=== PATIENT | female | born 2000 | race Caucasian/White ===

== ENCOUNTER 2021-05-29 16:36 | Emergency (ER) | payer OTHER ==
[~2021-05-29] VITALS: Ht 182.9 cm; Wt 74.0 kg
[2021-05-29] MEDS ORDERED: [UNRECOGNIZED DRUG - OTHER] (18:22)
[2021-05-29 19:02] LABS: URINE BILIRUBIN - DIPSTICK NEGATIVE (NEGATIVE); URINE BLOOD DIPSTICK NEGATIVE (NEGATIVE); URINE COLOR YELLOW; URINE GLUCOSE - DIPSTICK NEGATIVE (NEGATIVE); URINE KETONE NEGATIVE (NEGATIVE); URINE LEUK ESTERASE NEGATIVE (NEGATIVE); URINE PROTEIN - DIPSTICK NEGATIVE (NEG-TRACE); URINE UROBILINOGEN - DIPSTICK 0.2 E.U./dL (0.2)
[2021-05-29 19:11] LABS: URINE NITRITE - DIPSTICK NEGATIVE (Negative)
[2021-05-29 20:55] LABS: HEMATOCRIT 42.8 % (37.0-47.0); HEMOGLOBIN 14.1 g/dl (12.0-16.0); IMMATURE GRANULOCYTES 0.1 % (0.0-5.0); MEAN CELL VOLUME 85.1 fL CALC (80.0-100.0); MEAN CORPUSCULAR HGB CONC 32.9 g/dL CAL (32.0-36.0); NEUT# 6.17 thou/uL (2.00-7.15); RED BLOOD COUNT 5.03 mill/uL (4.20-5.60); RED CELL DISTRI WIDTH 12.5 % (11.5-15.5)
[2021-05-29 21:06] LABS: ALBUMIN 4.8 g/dL (3.2-5.0); ALKALINE PHOSPHATASE 108 u/l (38-126); AMYLASE 96 u/l (30-110); ANION GAP 13 (6-22 (CALC)); BUN 15 mg/dL (7-17); BUN/CREATININE RATIO 18 (12-20 (CALC)); CARBON DIOXIDE 26 mmol/l (22-30); CHLORIDE 103 mmol/l (95-108); CREATININE 0.8 mg/dL (0.5-1.0); GFR > 60 ML/MIN (>=60 (CALC)); GFR FOR AFR.AMER. > 60 ML/MIN (>=60 (CALC)); LIPASE 45 u/l (23-300); POTASSIUM 3.9 mmol/l (3.5-5.1); SGOT/AST 23 u/l (14-36); SODIUM 138 mmol/l (137-146); TOTAL PROTEIN 8.4 g/dL (6.3-8.2)
[2021-05-29 23:00] VITALS: BP 124/72
== END 2021-05-29 23:05 | disposition home or self-care (01) | DRG 392 ==
LOC: ED 16:36
PROVIDERS: Emergency Medicine; Family Medicine
DX: R10.11 Right upper quadrant pain (principal); R10.31 Right lower quadrant pain; E05.90 Thyrotoxicosis, unspecified without thyrotoxic crisis or storm
CPT/HCPCS: Q9967; S0164

== ENCOUNTER 2023-12-02 09:28 | Observation (INO) | payer OTHER ==
[~2023-12-02] VITALS: Ht 180.3 cm; Wt 83.0 kg
[~2023-12-02 09:28] MED LIST: [UNRECOGNIZED DRUG - OTHER]
[2023-12-02] MEDS ORDERED: SODIUM CHLORIDE 0.9% 1,000 ML IV ONE (09:40)
[2023-12-02] MEDS ORDERED: ONDANSETRON HCl 4 MG/2 ML SDV IV ONE (09:40)
[2023-12-02 10:13] LABS: BASO% 0.5 % (0-3); EOS% 2.1 % (0-8); HEMATOCRIT 41.5 % (37.0-47.0); HEMOGLOBIN 13.7 g/dl (12.0-16.0); IMMATURE GRANULOCYTES 0.1 % (0.0-5.0); MEAN CELL VOLUME 84.2 fL CALC (80.0-100.0); MEAN CORPUSCULAR HGB 27.8 pG CALC (26.0-32.0); MONO% 8.5 % (2-13); NEUT# 5.4 thou/uL (2.00-7.15); NEUT% 62.8 % (42-76); RED BLOOD COUNT 4.93 mill/uL (4.20-5.60); RED CELL DISTRI WIDTH 12.5 % (11.5-15.5)
[2023-12-02 10:23] LABS: ALBUMIN 4.8 g/dL (3.2-5.0); ALKALINE PHOSPHATASE 72 u/l (38-126); ANION GAP 13 (6-22 (CALC)); BUN 13 mg/dL (7-17); BUN/CREATININE RATIO 17 (12-20 (CALC)); CARBON DIOXIDE 21 mmol/l (22-30); CHLORIDE 111 mmol/l (95-108); CREATININE 0.8 mg/dL (0.5-1.0); ESTIMATED GFR 105 ML/MIN (>=90 (CALC)); POTASSIUM 3.6 mmol/l (3.5-5.1); SODIUM 141 mmol/l (137-146); TOTAL PROTEIN 8.3 g/dL (6.3-8.2)
[2023-12-02 10:53] LABS: SGOT/AST 55 u/l (14-36)
[2023-12-02 10:54] LABS: TSH, 3RD GENERATION < 0.02 uIU/mL (0.47 - 4.68)
[2023-12-02] MEDS ORDERED: LABETALOL HCL 100 MG/20 ML VIAL IV ONE (11:15)
[2023-12-02] MEDS ORDERED: PROPRANOLOL IV ONE (11:20)
[2023-12-02] MEDS ORDERED: HYDROCORTISONE IV ONE (12:05)
[2023-12-02] MEDS ORDERED: [UNRECOGNIZED DRUG - OTHER] IV ONE (12:05)
[2023-12-02] MEDS ORDERED: SODIUM CHLORIDE 0.9% 1,000 ML IV PRN (12:40)
[2023-12-02] MEDS ORDERED: ACETAMINOPHEN 325 MG/TAB PO PRN (12:40)
[2023-12-02] MEDS ORDERED: MAGNESIUM HYDROXIDE 30 ML UDC PO PRN (12:40)
[2023-12-02 18:32] VITALS: BP 138/86
[2023-12-02] MEDS ORDERED: ENOXAPARIN SODIUM 40 MG/0.4 ML SYR SC SCH (21:00)
[2023-12-03 04:35] VITALS: BP 106/54
[2023-12-03 05:11] VITALS: BP 106/54
[2023-12-03 07:20] VITALS: BP 133/74
[2023-12-03] MEDS ORDERED: METHIMAZOLE5 MG PO (10:23)
[2023-12-03] MEDS ORDERED: METHIMAZOLE10 MG PO (10:29)
[2023-12-03 11:52] VITALS: BP 128/77
== END 2023-12-03 12:05 | disposition home or self-care (01) | DRG 645 ==
LOC: ED 09:28 → ED-I 12:05 → ED 12:17 → MS2 12:18
PROVIDERS: Family Medicine; ADMIT Internal Medicine; ATTEND Internal Medicine
DX: E05.01 Thyrotoxicosis with diffuse goiter with thyrotoxic crisis or storm (principal)
CPT/HCPCS: G0378